=== PATIENT | female | born 1995 | race Caucasian/White ===

== ENCOUNTER 2022-01-02 23:40 | Inpatient (IN) | payer MEDICAID, SELFPAY ==
[2022-01-02 23:50] VITALS: BP 98/67; PULSE 117; RESP 16; TEMP 36.8; O2SAT 98
[2022-01-02 23:53] VITALS: BMI 16.1
--- NOTE | 2022-01-03 00:36 | PC.NURSE ---
Addendum entered by Davida Quick RN 01/03/22 00:43: HX- SCHIZOPHRENIA, BORDERLINE PERSONALITY DISORDER, PTSD, BIPOLAR, ANXIETY, DEPRESSION. Original Note: ADMISSION PT ARRIVED FROM [facility] WHERE SHE WAS ADMITTED FOR SI AND HI. AT THAT TIME PER AFFIDAVIT PT WAS ASKED TO WASH HER DISHES BY A FRIEND AND SHE SNAPPED. STATED SHE WANTED TO KILL HER SELF OR SOMEONE ELSE. WHEN ASKED WHO STATED THE PEOPLE THAT ARE THE REASON SHE'S THERE. WAS VERBALLY AND PHYSICALLY AGGRESSIVE AT ER WITH STAFF. UPON ARRIVAL TO NPU STATES THAT SHE IS UNSURE WHY SHE WAS BROUGHT IN AND THAT SHE DOES NOT REMEMBER WHAT HAPPENED. WHEN ASKED IF SHE HAD BEEN SUICIDAL, STATED PROBABLY BUT DOES NOT REMEMBER. REPORTS THAT SHE DOES AT TIMES HAVE SI WELL AVH. REPORTS BEING INPATIENT IN THE PAST BUT UNSURE WHEN OR WHERE. DENIES HAVING ANY OUTPATIENT CARE, NO MEDICATIONS, STATES THAT SHE DOES NOT LIKE TO TAKE MEDS, AND DENIES HAVING A PHARMACY. REPORTS HX OF PHYSICAL, SEXUAL AND EMOTIONAL ABUSE BUT DID NOT WANT TO GIVE FURTHER INFO OTHER THAN BY PRETTY MUCH EVERYONE , THEN ASKED IF SHE COULD HAVE STD TESTING WHILE HERE. UNSURE OF LAST PERIOD, HCG WAS NEGATIVE AT ER. DENIES HAVING A SUPPORT SYSTEM, STATING THEY ARE ALL IN [facility]. PT CURRENTLY HOMELESS. REPORTS ONLY HOBBY IS GETTING HIGH AND THAT SHE JUST WANTS TO LEAVE AND GO USE METH RIGHT NOW. STATES SHE USES EVERYDAY, ALL DAY, MUCH SHE CAN. DRINKS DAILY BUT ONLY A LITTLE . LAST USE OF BOTH 1 WEEK AGO. DENIES HAVING WITHDRAWAL ISSUES NOW OR IN THE PAST. DID ANSWER QUESTIONS BUT POOR HISTORIAN AND SOMEWHAT RESISTIVE DURING PROCESS. UDS + METH AND THC. PT ATE DINNER, CHANGED INTO UNIT SCRUBS AND WENT TO BED. STAFF CONTINUES TO MONITOR.
[2022-01-03 06:00] VITALS: BP 97/63; PULSE 115; RESP 17; TEMP 36.8; O2SAT 99
[2022-01-03] MEDS: OLANZapine 5 mg ODT PO ×2 (10:00→16:02)
--- NOTE | 2022-01-03 11:06 | P.NPUHP_ITS ---
Providers/Chief Complaint Admitting Physician: Trey Larsen MD [facility] NPU History of Present Illness Akua Ramirez is a 26 year old female admitted from an outside emergency department with the following report: Patient is a 26-year-old female who presents to the emergency department via EMS from [facility] where the patient presented for suicidal and homicidal ideations.? On arrival the patient was yelling at staff and very aggressive she stated she wanted to .? Patient began screaming at the nurses and continued with aggressive behavior.? Patient refusing to answer questions.? She admits to recent methamphetamine and marijuana use. Affidavit from nurse patient stated to this nurse I am going to snap and kill someone or just going to kill myself patient reports that she has used methamphetamine and marijuana but has not used anything in the last 2 days.? Mellisa stated that she was at the friend's house and they asked her to wash the dishes she used.? Mellisa states that was what made me snap .? Clover refuses to answer any further questions then became very aggressive. From the psychological assessment she describes fatigue, lack of interest, lack of motivation and oversleeping.? She describes feeling hopeless and worthless.? Reports irritability, anger, worry and nervousness.? She states I am fucking pissed off, stressed, annoyed and tired .? She described suicidal thoughts for the last 4 months she denies any plan or intent but also states that I am here I just want to she denied any current thoughts of hurting others.? Patient does not remember the events that occurred in the ER earlier this evening.? She describes feeling really pissed off and they would not listen to what I was saying .? Describes oversleeping and overeating.? She reports using methamphetamine a few days ago as it is the only thing that keeps me awake .? She denies being seen by mental health provider.? She was previously prescribed mental health medications however cannot say if it was helpful or not. From our nursing assessment: PT ARRIVED FROM [facility] WHERE SHE WAS ADMITTED FOR SI AND HI. AT THAT TIME PER AFFIDAVIT PT WAS ASKED TO WASH HER DISHES BY A FRIEND AND SHE SNAPPED. STATED SHE WANTED TO KILL HER SELF OR SOMEONE ELSE. WHEN ASKED WHO STATED THE PEOPLE THAT ARE THE REASON SHE'S THERE. WAS VERBALLY AND PHYSICALLY AGGRESSIVE AT ER WITH STAFF. UPON ARRIVAL TO NPU STATES THAT SHE IS UNSURE WHY SHE WAS BROUGHT IN AND THAT SHE DOES NOT REMEMBER WHAT HAPPENED. WHEN ASKED IF SHE HAD BEEN SUICIDAL, STATED PROBABLY BUT DOES NOT REMEMBER. REPORTS THAT SHE DOES AT TIMES HAVE SI WELL AVH. REPORTS BEING INPATIENT IN THE PAST BUT UNSURE WHEN OR WHERE. DENIES HAVING ANY OUTPATIENT CARE, NO MEDICATIONS, STATES THAT SHE DOES NOT LIKE TO TAKE MEDS, AND DENIES HAVING A PHARMACY. REPORTS HX OF PHYSICAL, SEXUAL AND EMOTIONAL ABUSE BUT DID NOT WANT TO GIVE FURTHER INFO OTHER THAN BY PRETTY MUCH EVERYONE , THEN ASKED IF SHE COULD HAVE STD TESTING WHILE HERE. UNSURE OF LAST PERIOD, HCG WAS NEGATIVE AT ER. DENIES HAVING A SUPPORT SYSTEM, STATING THEY ARE ALL IN SNF. PT CURRENTLY HOMELESS. REPORTS ONLY HOBBY IS GETTING HIGH AND THAT SHE JUST WANTS TO LEAVE AND GO USE METH RIGHT NOW. STATES SHE USES EVERYDAY, ALL DAY, MUCH SHE CAN. DRINKS DAILY BUT ONLY A LITTLE . LAST USE OF BOTH 1 WEEK AGO. DENIES HAVING WITHDRAWAL ISSUES NOW OR IN THE PAST. DID ANSWER QUESTIONS BUT POOR HISTORIAN AND SOMEWHAT RESISTIVE DURING PROCESS. UDS + METH AND THC. PT ATE DINNER, CHANGED INTO UNIT SCRUBS AND WENT TO BED. STAFF CONTINUES TO MONITOR. She said that she decided to walk from [place] to [place] but on the way she saw [facility] and realized that it was a mental hospital and decided to go there to get some help. They assessed her and sent her to the hospital. She says that she has been having auditory hallucinations for about 1 year. They mostly yell her name and tell her to come there. She sometimes sees things also. She uses methamphetamine on a daily basis. She says that these happen even when she has not been using methamphetamine. She said that she had been in the hospital for the last week and not have access to methamphetamine still hears them. I asked her about the report of her blowing up when asked to do dishes. She said that she had come out of the room and was planning to help but then the other person got an attitude and complained about her not helping and so then she blew up. I asked who these people were and she said I am not going to tell you so that you can send the police there. She said that was a red flag #1 because I was asking questions about things I did not need to know about. I asked her where she was from and she said that was red flag #2. I ask her to tell me about her childhood and she said that it was red flag #3 and we were done talking. Meds NPU Home Medications Medication Instructions Recorded Confirmed Last Taken Type No Known Home Medications 01/03/22 01/03/22 Unknown History Allergies Allergy/AdvReac Type Severity Reaction Status Date / Time amoxicillin Allergy Unknown Verified 01/03/22 00:24 azithromycin [From Zithromax] Allergy Unknown Verified 01/03/22 00:24 ciprofloxacin [From Cipro] Allergy Unknown Verified 01/03/22 00:24 Penicillins Allergy Unknown Verified 01/03/22 00:24 Mental Status Exam MSE Comments: This is a thin 26-year-old female who appears a little older than her stated age and is in no acute distress. Her grooming is fair. She was not very cooperative. She is dressed in hospital scrubs. Eye contact was good. psychomotor activity is increased. Speech is at a regular rate and rhythm, normal volume, good articulation, not pressured. Alert, oriented X3 Attention and concentration appears to be normal. Memory is intact Mood is irritable. Affect is irritable. Thought process is logical and goal-directed. Thought content: She reports auditory hallucinations of people calling her name and telling her to come there. She also reports visual hallucinations but I did not have a chance to ask about them. She appears to have some delusions and paranoia. No current suicidal ideation. He denies homicidal ideation. Fund of knowledge is probably decreased. Insight and judgment appear to be poor. Impulse control is poor. Vitals/I&O/Wt Last Vital Signs Temp 98.3 F 01/03/22 06:00 Pulse 115 H 01/03/22 06:00 Resp 01/03/22 06:00 BP 97/63 01/03/22 06:00 Pulse Ox 99 01/03/22 06:00 Weight last 48 hrs Weight 45.359 kg A&P Assessment and plan (1) Drug-induced psychotic disorder: Status: Acute (2) Methamphetamine abuse: Status: Acute (3) Homeless: Status: Acute Plan This is a homeless 26-year-old daily methamphetamine user who was in the emergency room quite agitated and aggressive and required numerous injections Plan: 1. We will observe on as needed medications for now. We will start an antipsychotic at bedtime when she allows me to talk to her about it. 2. Continue every 15 minute checks for safety. 3. Encourage individual, group and milieu therapies. 4. Encourage sober living treatment after discharge at the highest level of care to which she is willing to commit. 5. We will monitor for safety for herself in the community prior to discharge. Involuntary Hold Information 96 Hour Hold: 96 Hour Involuntary Admission: Yes 96 Hour Hold Ending Date: 01/06/22 96 Hour Hold Ending Time: 23:38 Attestations NPU Medical Necessity Statement*: Inpatient hospitalization is medically necessary and the clinically appropriate intervention at this time. We will initiate medications and make changes as indicated. She will be in the hospital for over 2 midnights. Likely length of stay 4-6 days Coding Level of Care Code Acute Post Anesthesia Nurse for Marry Cornejo Diagnoses Drug-induced psychotic disorder F19.959 Methamphetamine abuse F15.10 Homeless Z59.00
[2022-01-03] MEDS: nicotine 2 mg Gum BUCCAL ×2 (12:06→16:02)
[2022-01-03 14:00] VITALS: BP 114/69; PULSE 119; RESP 13; TEMP 37.1; O2SAT 98
[2022-01-03] MEDS: propranolol 20 mg Tablet PO (16:02)
[2022-01-03] MEDS: hyDROXYzine 25 mg Capsule 50 MG PO (17:04)
[2022-01-03] MEDS: ondansetron 4 MG Tablet PO (17:04)
--- NOTE | 2022-01-03 17:44 | PC.NURSE ---
pt approached nurses station stating her heart was racing and she was dizzy upon standing, vs showed hr 138 bp 106/69, vertbal order fro dr jacobsen for 20mg propranol once given. reassessed vs and hr 96 bp 110/76. pt was again reporting nausea and prn zofran given. pt is currently asleep in bed with no s/s of distress or discomfort
--- NOTE | 2022-01-03 17:44 | PC.NURSE ---
0874 Pt became unhappy that her shower wasn't working and thought that we were going to record her in the shower in room 170. Staff assured her that wasn't going to happen. Pt took a bath instead. Pt was unhappy with the scrubs provided, she screamed These are too Fucking BIG!! You wanna see my ASS!! Well here it is!! Pt then took her pants off at the nurses station and stormed off to her room, Staff found pt a smaller size of pants.
--- NOTE | 2022-01-03 18:40 | PC.NURSE ---
170 Pt stated that she felt sick staff took vital signs, no signs of distress, pt administered vistaril 50 mg and zofran 4mg. pt laying down to rest.
[2022-01-03] MEDS: trazodone 50 mg Tablet PO (20:11)
[2022-01-03] MEDS: calcium carbonate 500 mg Chew Tablet 1000 MG PO (20:11)
[2022-01-03 20:22] VITALS: BP 97/61; PULSE 93; RESP 16; TEMP 36.4; O2SAT 98
--- NOTE | 2022-01-03 22:09 | PC.NURSE ---
PT REQUESTED MEDICATION FOR SLEEP AND GAS. TRAZODONE 50MG PO AND TUMS 2 TABS GIVEN. PT RESTING QUIETLY AT THIS TIME WITH BOTH EYES CLOSED.
[2022-01-04 06:00] VITALS: BP 100/66; PULSE 108; RESP 18; TEMP 36.5; O2SAT 99
[2022-01-04 08:02] VITALS: BP 92/57; PULSE 98; RESP 17; O2SAT 98
[2022-01-04] MEDS: ondansetron 4 MG Tablet PO (08:19)
[2022-01-04] MEDS: magnesium hydroxide 30 mL UDC PO (08:19)
[2022-01-04] MEDS: hyDROXYzine 25 mg Capsule 50 MG PO (08:19)
[2022-01-04] MEDS: nicotine 2 mg Gum BUCCAL (08:19)
[2022-01-04] MEDS: OLANZapine 5 mg ODT PO (08:19)
--- NOTE | 2022-01-04 08:52 | P.NPUPN_ITS ---
Subjective NPU Subjective: She continues to be very irritable. She said that she was not feeling well and wanted to be left alone. She had a high pulse last night and was given Inderal 20 mg and brought her pulse down to 96. We will give that 3 times per day. She took Zyprexa Zydis twice yesterday. We will focus on that for her anxiety. Mental Status Exam MSE Comments: This is a thin 26-year-old female who appears a little older than her stated age and is in mild distress. Her grooming is fair. She was not very cooperative. She is dressed in hospital scrubs. Eye contact was poor today psychomotor activity is increased. Speech is at a regular rate and rhythm, normal volume, good articulation, not pressured. Alert, oriented X3 Attention and concentration appears to be normal. Memory is intact Mood is irritable. Affect is irritable. Thought process is logical and goal-directed. Thought content: She reports auditory hallucinations of people calling her name and telling her to come there. She also reports visual hallucinations but I did not have a chance to ask about them. She appears to have some delusions and paranoia. No current suicidal ideation. He denies homicidal ideation. Fund of knowledge is probably decreased. Insight and judgment appear to be poor. Impulse control is poor. Cognition: Patient Appearance: Appears Older than Age Ability to Follow Directions: Fair Patient Orientation (long list): Person, Place, Name, Age and Birthday Comprehension Ability: Understands Concepts Hallucination Type: None Delusion Description: Not Present Thought Process: Appropriate Affect: Affect Description: Calm Behavior: Patient Behavior: Appropriate Speech Pattern: Appropriate and Clear Vitals/I&O/Wt Last Vital Signs Temp 97.7 F 01/04/22 06:00 Pulse 98 01/04/22 08:02 Resp 17 01/04/22 08:02 BP 92/57 01/04/22 08:02 Pulse Ox 98 01/04/22 08:02 Weight last 48 hrs Weight 45.359 kg A&P Assessment and plan (1) Drug-induced psychotic disorder: Status: Acute (2) Methamphetamine abuse: Status: Acute (3) Homeless: Status: Acute Plan This is a homeless 26-year-old daily methamphetamine user who was in the emergency room quite agitated and aggressive and required numerous injections Plan: 1. We will observe on as needed medications for now. She took Zyprexa Zydis twice yesterday and will use that for her anxiety preferentially. 2. Continue every 15 minute checks for safety. 3. Encourage individual, group and milieu therapies. 4. Encourage sober living treatment after discharge at the highest level of care to which she is willing to commit. 5. We will monitor for safety for herself in the community prior to discharge. Involuntary Hold Information 96 Hour Hold: 96 Hour Involuntary Admission: Yes 96 Hour Hold Ending Date: 01/06/22 96 Hour Hold Ending Time: 23:38 Attestations NPU Medical Necessity Statement*: Inpatient hospitalization is medically necessary and the clinically appropriate intervention at this time. We will initiate medications and make changes as indicated. Coding Level of Care Code Acute Film Casting Operator for Marry Cornejo Diagnoses Drug-induced psychotic disorder F19.959 Methamphetamine abuse F15.10 Homeless Z59.00
[2022-01-04] MEDS: propranolol 20 mg Tablet PO (09:35)
--- NOTE | 2022-01-04 09:58 | W.PM.NPUDCS ---
Diagnoses at Discharge Discharge Diagnosis (1) Drug-induced psychotic disorder: Status: Acute (2) Methamphetamine abuse: Status: Acute (3) Homeless: Status: Acute Reason for Visit Reason for Visit: Brief History: History of Present Illness Akua Ramirez is a 26 year old female admitted from an outside emergency department with the following report: Patient is a 26-year-old female who presents to the emergency department via EMS from [facility] where the patient presented for suicidal and homicidal ideations.? On arrival the patient was yelling at staff and very aggressive she stated she wanted to .? Patient began screaming at the nurses and continued with aggressive behavior.? Patient refusing to answer questions.? She admits to recent methamphetamine and marijuana use. Affidavit from nurse patient stated to this nurse I am going to snap and kill someone or just going to kill myself patient reports that she has used methamphetamine and marijuana but has not used anything in the last 2 days.? Mellisa stated that she was at the friend's house and they asked her to wash the dishes she used.? Mellisa states that was what made me snap .? Clover refuses to answer any further questions then became very aggressive. From the psychological assessment she describes fatigue, lack of interest, lack of motivation and oversleeping.? She describes feeling hopeless and worthless.? Reports irritability, anger, worry and nervousness.? She states I am fucking pissed off, stressed, annoyed and tired .? She described suicidal thoughts for the last 4 months she denies any plan or intent but also states that I am here I just want to she denied any current thoughts of hurting others.? Patient does not remember the events that occurred in the ER earlier this evening.? She describes feeling really pissed off and they would not listen to what I was saying .? Describes oversleeping and overeating.? She reports using methamphetamine a few days ago as it is the only thing that keeps me awake .? She denies being seen by mental health provider.? She was previously prescribed mental health medications however cannot say if it was helpful or not. From our nursing assessment:?PT ARRIVED FROM [facility] WHERE SHE WAS ADMITTED FOR SI AND HI. AT THAT TIME PER AFFIDAVIT PT WAS ASKED TO WASH HER DISHES BY A FRIEND AND SHE SNAPPED. STATED SHE WANTED TO KILL HER SELF OR SOMEONE ELSE. WHEN ASKED WHO STATED THE PEOPLE THAT ARE THE REASON SHE'S THERE. WAS VERBALLY AND PHYSICALLY AGGRESSIVE AT ER WITH STAFF. UPON ARRIVAL TO NPU STATES THAT SHE IS UNSURE WHY SHE WAS BROUGHT IN AND THAT SHE DOES NOT REMEMBER WHAT HAPPENED. WHEN ASKED IF SHE HAD BEEN SUICIDAL, STATED PROBABLY BUT DOES NOT REMEMBER. REPORTS THAT SHE DOES AT TIMES HAVE SI WELL AVH. REPORTS BEING INPATIENT IN THE PAST BUT UNSURE WHEN OR WHERE. DENIES HAVING ANY OUTPATIENT CARE, NO MEDICATIONS, STATES THAT SHE DOES NOT LIKE TO TAKE MEDS, AND DENIES HAVING A PHARMACY. REPORTS HX OF PHYSICAL, SEXUAL AND EMOTIONAL ABUSE BUT DID NOT WANT TO GIVE FURTHER INFO OTHER THAN BY PRETTY MUCH EVERYONE , THEN ASKED IF SHE COULD HAVE STD TESTING WHILE HERE. UNSURE OF LAST PERIOD, HCG WAS NEGATIVE AT ER. DENIES HAVING A SUPPORT SYSTEM, STATING THEY ARE ALL IN [facility]. PT CURRENTLY HOMELESS. REPORTS ONLY HOBBY IS GETTING HIGH AND THAT SHE JUST WANTS TO LEAVE AND GO USE METH RIGHT NOW. STATES SHE USES EVERYDAY, ALL DAY, MUCH SHE CAN. DRINKS DAILY BUT ONLY A LITTLE . LAST USE OF BOTH 1 WEEK AGO. DENIES HAVING WITHDRAWAL ISSUES NOW OR IN THE PAST. DID ANSWER QUESTIONS BUT POOR HISTORIAN AND SOMEWHAT RESISTIVE DURING PROCESS. UDS + METH AND THC. PT ATE DINNER, CHANGED INTO UNIT SCRUBS AND WENT TO BED. STAFF CONTINUES TO MONITOR. She said that she decided to walk from [place] to [place] but on the way she saw [facility] and realized that it was a mental hospital and decided to go there to get some help.? They assessed her and sent her to the hospital.? She says that she has been having auditory hallucinations for about 1 year.? They mostly yell her name and tell her to come there.? She sometimes sees things also.? She uses methamphetamine on a daily basis.? She says that these happen even when she has not been using methamphetamine.? She said that she had been in the hospital for the last week and not have access to methamphetamine still hears them.? I asked her about the report of her blowing up when asked to do dishes.? She said that she had come out of the room and was planning to help but then the other person got an attitude and complained about her not helping and so then she blew up.? I asked who these people were and she said I am not going to tell you so that you can send the police there.? She said that was a red flag #1 because I was asking questions about things I did not need to know about.? I asked her where she was from and she said that was red flag #2.? I ask her to tell me about her childhood and she said that it was red flag #3 and we were done talking. Hospital Course Hospital Course She slowly acclimated to the individual, group and milieu therapies provided. She took only as needed medications. She took 3 doses of Zyprexa Zydis for anxiety. She felt it was beneficial and she was given Zyprexa as needed to take on discharge. She tolerated these doses and showed steady improvement during her stay. She was able to contract for safety outside hospital prior to discharge. During the hospitalization, patient had routine laboratory studies which were within normal limits except for few outliers. Additionally there was a general medical evaluation which was also within normal limits and revealed no new acute processes. Discharge Summary: At the time of discharge, lethality was denied and psychosis was resolving. Mood and anxiety were well managed. She refused treatment to try to improve her mental health or get off of methamphetamine. Patient was evaluated and deemed to be absent credible lethality, and had achieved the maximum benefit from an inpatient hospitalization, so was discharged. Involuntary Hold Information 96 Hour Hold: 96 Hour Involuntary Admission: Yes 96 Hour Hold Ending Date: 01/06/22 96 Hour Hold Ending Time: 23:38 Mental Status Exam MSE Comments: This is a thin 26-year-old female who appears a little older than her stated age and is in mild distress. Her grooming is fair. She was not very cooperative. She is dressed in hospital scrubs. Eye contact was poor today psychomotor activity is increased. Speech is at a regular rate and rhythm, normal volume, good articulation, not pressured. Alert, oriented X3 Attention and concentration appears to be normal. Memory is intact Mood is irritable. Affect is irritable. Thought process is logical and goal-directed. Thought content: She reports auditory hallucinations of people calling her name and telling her to come there. She also reports visual hallucinations but I did not have a chance to ask about them. She appears to have some delusions and paranoia. No current suicidal ideation. He denies homicidal ideation. Fund of knowledge is probably decreased. Insight and judgment appear to be poor. Impulse control is poor. Cognition: Patient Appearance: Appears Older than Age Ability to Follow Directions: Fair Patient Orientation (long list): Person, Place, Name, Age and Birthday Comprehension Ability: Understands Concepts Hallucination Type: None Delusion Description: Not Present Thought Process: Appropriate Affect: Affect Description: Calm Behavior: Patient Behavior: Appropriate Speech Pattern: Appropriate and Clear Discharge Data Vitals: Last Vital Signs Temp 97.7 F 01/04/22 06:00 Pulse 98 01/04/22 08:02 Resp 17 01/04/22 08:02 BP 92/57 01/04/22 08:02 Pulse Ox 98 01/04/22 08:02 Discharge Plan Discharge Patient Disposition: Home Condition: Stable Prescriptions: New olanzapine 5 mg Tablet 5 mg PO BID PRN (Reason: Anxiety) 30 Days Qty: 60 1RF Discharge Orders: Discharge Order (Routine); Ordered 01/04/22 Ordered By: Trey Larsen Discharge Diet: Regular Discharge Activity: Resume usual activity Patient Instructions: Opioid Safety Discharge Attestations NPU Time Spent in Discharge Care*: less than 30 min Specific Discharge Activities: Specific discharge activities: educating patient, discussing with case operator/social workers/dc planners, documenting/other paperwork and evaluating patient/reviewing data Coding Level of Care Code Acute Chg DC note Diagnoses Drug-induced psychotic disorder F19.959 Methamphetamine abuse F15.10 Homeless Z59.00
--- NOTE | 2022-01-04 09:59 | PC.NURSE ---
REPORTS SHE IS NOT FEELING WELL STATES HER STOMACH HURTS AND SHE PROBABLY HAS A BLOCKAGE. STATES SHE HAD A BM YESTEREDAY 01/03/22. BS HYPOACTIVE TIMES FOUR. ABDOMEN FLAT SOFT AND NON TENDER. DENIES SI/HI AND AVH AT THIS TIME. STATES SHE IS DIZZY AND NEEDS TO LAY DOWN. BP WAS 92/57 SPOX 98% HR 98 RESP 19. MED NURSE ADMINISTERED ZYDIS/VISTARIL FOR ANXIETY, ZOFRAN FOR NAUSEA/MOM [address] MLS [address]. NUR WENT TO ROOM PT WAS IRRITATED AND YELLING. STAFF CONTINUES CLOSE OBSERVATION AND VERBAL REDIRECTION.
[2022-01-04 10:18] VITALS: BP 92/57; PULSE 98; RESP 17; O2SAT 98
== END 2022-01-04 12:00 | disposition home or self-care (01) | DRG 897 ==
PROVIDERS: Admitting Provider Psychiatry & Neurology Psychiatry; Visit Provider Psychiatry & Neurology Psychiatry
DX: F19.159 Other psychoactive substance abuse with psychoactive substance-induced psychotic disorder, unspecified (principal); R45.851 Suicidal ideations; R45.850 Homicidal ideations; F15.10 Other stimulant abuse, uncomplicated; F12.90 Cannabis use, unspecified, uncomplicated; Z59.00 Homelessness unspecified
CPT/HCPCS: 97150; 97165; Q0162